=== PATIENT | male | born 1985 | race Caucasian/White ===

== ENCOUNTER 2022-06-23 13:51 | Emergency (ER) | payer OTHER, SELFPAY ==
[2022-06-23] VITALS (7 sets, daily range): BP systolic 106–141; BP diastolic 57–94; PULSE 78–106; RESP 16–18; TEMP 36.7; O2SAT 97–100
--- NOTE | 2022-06-23 14:35 | CTR_ITS ---
PROCEDURE INFORMATION: Exam: CT Abdomen And Pelvis With Contrast Exam date and time: 06/23/2022 3:08 PM Age: 37 years old Clinical indication: Abdominal pain; Localized; Left; Patient HX: Lt groin TECHNIQUE: Imaging protocol: Computed tomography of the abdomen and pelvis with contrast. Radiation optimization: All CT scans at this facility use at least one of these dose optimization techniques: automated exposure control; mA and/or kV adjustment per patient size (includes targeted exams where dose is matched to clinical indication); or iterative reconstruction. Contrast material: OMNI 350; Contrast volume: 100 ml; Contrast route: INTRAVENOUS (IV); Other protocol: This patient has received 0 known CTs and 0 known cardiac nuclear medicine studies in the 12 months prior to the current study. COMPARISON: No relevant prior studies available. RADIATION DOSE METRICS: Total DLP (mGy-cm): 931.16 FINDINGS: Liver: Normal. No mass. Gallbladder and bile ducts: Normal. No calcified stones. No ductal dilation. Pancreas: Normal. No ductal dilation. Spleen: Normal. No splenomegaly. Adrenal glands: Normal. No mass. Kidneys and ureters: Normal. No hydronephrosis. Stomach and bowel: Unremarkable. No obstruction. No mucosal thickening. Appendix: No evidence of appendicitis. Intraperitoneal space: Unremarkable. No free air. No significant fluid collection. Vasculature: Unremarkable. No abdominal aortic aneurysm. Lymph nodes: Asymmetric left inguinal adenopathy with some adjacent inflammatory fat stranding in the subcutaneous tissues. Mildly prominent left external iliac node also noted. Urinary bladder: Unremarkable as visualized. Reproductive: Unremarkable as visualized. Bones/joints: No acute fracture. Soft tissues: Please see lymph nodes section. CT/CT abdomen pelvis w con* [id number] IMPRESSION: Asymmetric left inguinal adenopathy with adjacent fat stranding in the subcutaneous tissues.
--- NOTE | 2022-06-23 14:36 | ED_ITS ---
HPI - Male Genitourinary General: Chief complaint: Urogenital-Male Stated complaint: abd pain Time Seen by Provider: 06/23/22 14:26 History of Present Illness: This patient is a 37 year old presenting with left groin pain. He reports that he first noticed some soreness on Friday when he leaned against his desk and the area was tender. Since then it has gotten worse and he went to urgent care today to get checked. He was sent here due to concern for an incarcerated hernia. He denies N/V/D. He has been eating normally and has been excessively thirsty. He has had normal BM and no urinary symptoms. He had one day where the pain seemed to radiate to his testicles, but not now. He denies any swelling or tenderness in the testicles. No discharge. He denies any medical history but says that he has had some heart event in the past that might have been a panic attack. He does not take any prescription medicine. Physical Exam Const: COMMON NORMALS: no acute distress, patient oriented x3, no limitations and alert GENERAL APPEARANCE: cooperative and comfortable HENMT: HEAD & SCALP: normal to inspection FACE & SINUS: normal facial exam Eye: GENERAL EYE: appearance normal, both eyes and all related structures Neck/C-Spine: COMMON NORMALS: supple, no meningeal signs and no JVD Chest: COMMONS NORMALS: normal inspection of the chest Resp: COMMON NORMALS: normal respiratory effort, No use of accessory muscles and clear to auscultation bilaterally AUSCULTATION: clear to auscultation bilaterally Cardio: COMMON NORMALS: no JVD, regular rate, regular rhythm and No murmurs present (Cardio) RATE: regular rate RHYTHM: regular rhythm GI: COMMON NORMALS: Normal to inspection, nondistended, normoactive bowel sounds present AUSCULTATION: Yes normoactive bowel sounds PALPATION: Yes Tenderness to palpation present (GI) (firm, tender mass in the left inguinal area - hernia vs lymphadenopathy) : COMMON NORMALS: Yes Testes normal, Yes scrotum normal and Yes no scrotal swelling Back/Pelvis: COMMON NORMALS: thoracic and lumbar spine normal to inspection Extremity: COMMON NORMALS: normal to inspection Neuro: COMMON NORMALS: patient oriented x3, moves all extremities, no focal motor deficits and no sensory deficits noted SENSORIUM/ORIENTATION: Yes alert MENINGEAL SIGNS: Yes no meningeal signs Psych: COMMON NORMALS: mental status grossly normal, cooperative and normal affect Skin: COMMON NORMALS: no rashes or lesions noted and turgor normal GENERAL SKIN EXAM: no rashes or lesions noted and turgor normal Course Vital Signs: Vital signs: Vital Signs Temperature 98.0 F 06/23/22 13:55 Pulse Rate 97 06/23/22 15:02 Respiratory Rate 18 06/23/22 15:02 Blood Pressure 124/92 06/23/22 15:02 Pulse Oximetry 98 06/23/22 15:02 Oxygen Delivery Me thod 06/23/22 13:55 MDM - Male Medical Decision Making LLQ/left inguinal mass. Too tender to really allow a hernia exam. Location concerning for hernia - tenderness would suggest incarceration - however no N/V and still having BM, still eating. Potentially could omentum incarceration rather than bowel. Also consider lymphadenopathy. Labs, CT pending. UA pen meghna. Patient denies any concern for STI. I did add an RPR which has been recommended by infectious disease specialist in our area due to a resurgence of the disease and it is in the differential for inguinal lymphadenopathy. Patient aware. CT with no hernia. Fat stranding and enlarged lymph nodes in the area of tenderness. No other lymphadenopathy elsewhere on CT or on exam. Labs are unr emarkable. Patient understands need for follow up - prescribed antibiotics and recommended follow up in about 2 week. Recommended that he establish care with a PCP. He also was given a script for pain meds and we discussed OTC pain control as well. Lab Data 06/23/22 15:09 06/23/22 15:09 Radiology Impressions Abdomen/Pelvis CT 06/23/22 14:35 IMPRESSION: Asymmetric left inguinal adenopathy with adjacent fat stranding in the subcutaneous tissues. Laboratory Results WBC 8.4 10^3/uL (4.0-10.0) 06/23/22 15:09 RBC 5.64 10^6/uL (4.1-5.3) H 06/23/22 15:09 Hgb 16.3 g/dL (11.7-16.6) 06/23/22 15:09 Hct 48.8 % (42.0-52.0) 06/23/22 15:09 MCV 86.5 fl (80-94) 06/23/22 15:09 MCH 28.9 pg (28.0-34.0) 06/23/22 15:09 MCHC 33.4 g/dL (30.0-36.0) 06/23/22 15:09 RDW 12.4 % (12.1-15.1) 06/23/22 15:09 Plt Count 282 10^3/cmm (130-400) 06/23/22 15:09 MPV 9.2 fL (7.4-10.4) 06/23/22 15:09 Neut % (Auto) 62.3 % 06/23/22 15:09 Lymph % (Auto) 22.2 % 06/23/22 15:09 [place]ides % (Auto) 10.2 % 06/23/22 15:09 Eos % (Auto) 3.8 % 06/23/22 15:09 Baso % (Auto) 0.8 % 06/23/22 15:09 Neut # (Auto) 5.20 10^3/uL (1.8-7.7) 06/23/22 15:09 Lymph # (Auto) 1.9 10^3/uL (0.8-4.8) 06/23/22 15:09 Rapides # (Auto) 0.9 10^3/uL (0.2-0.9) 06/23/22 15:09 Eos # (Auto) 0.3 10^3/uL (0.0-0.8) 06/23/22 15:09 Baso # (Auto) 0.1 10^3/uL (0.0-0.1) 06/23/22 15:09 Nucleated RBC % (auto) 0 % 06/23/22 15:09 Nucleated RBCs # 0.0 /100WBC 06/23/22 15:09 Sodium 139 mmol/L (136-145) 06/23/22 15:09 Potassium 4.1 mmol/L (3.5-5.1) 06/23/22 15:09 Chloride 100 mmol/L (98-107) 06/23/22 15:09 Carbon Dioxide 27 mmol/L (22-29) 06/23/22 15:09 Anion Gap 16.1 (5-19) 06/23/22 15:09 BUN 13 mg/dL (6-20) 06/23/22 15:09 Creatinine 1.0 mg/dL (0.7-1.2) 06/23/22 15:09 GFR Calculation 84.5 mL/min (90-130) L 06/23/22 15:09 Glucose 82 mg/dL (65-115) 06/23/22 15:09 Calculated Osmolality 287 mOsm/kg (285-295) 06/23/22 15:09 Lactic Acid 1.4 mmol/L (0.5-2.2) 06/23/22 15:07 Calcium 9.5 mg/dL (8.5-10.5) 06/23/22 15:09 Total Bilirubin 0.5 mg/dL (0.15-1.2) 06/23/22 15:09 AST 36 U/L (0-40) 06/23/22 15:09 ALT 52 U/L (0-41) H 06/23/22 15:09 Alkaline Phosphatase 75 U/L (40-130) 06/23/22 15:09 Total Protein 7.9 g/dL (6.6-8.7) 06/23/22 15:09 Albumin 4.9 g/dL (3.5-5.2) 06/23/22 15:09 Globulin 3.3 g/dL (1.3-4.6) 06/23/22 15:09 Lipase 38 U/L (13-60) 06/23/22 15:09 Urine Color Yellow (Yellow) 06/23/22 15:27 Urine Appearance Clear (CLEAR) 06/23/22 15:27 Urine pH 7 (5-7) 06/23/22 15:27 Ur Specific Rattan 1.005 (1.005-1.030) 06/23/22 15:27 Urine Protein Neg (Negative) 06/23/22 15:27 Urine Glucose (UA) Norm (Normal) 06/23/22 15:27 Urine Ketones 1+ (Negative) H 06/23/22 15:27 Urine Blood Neg (Negative) 06/23/22 15:27 Urine Nitrate Negative (Negative) 06/23/22 15:27 Urine Bilirubin Neg (Negative) 06/23/22 15:27 Urine Urobilinogen Norm mg/dL (Negative) 06/23/22 15:27 Ur Leukocyte Esterase Negative (Negative) 06/23/22 15:27 Discharge Plan Discharge Patient Disposition: Home Clinical Impression: Inguinal lymphadenopathy Condition: Stable Prescriptions: New oxycodone 5 mg tablet 5 mg PO Q6H PRN (Reason: pain) Qty: 20 0RF doxycycline hyclate 100 mg capsule 100 mg PO BID 21 Days Qty: 42 0RF Discharge Orders: Discharge ED (Routine); Ordered 06/23/22 Ordered By: Charlotte Soto Discharge Diet: Advance as tolerated Discharge Activity: Resume usual activity Patient Instructions: Opioid Safety, Pain Management Activity Restrictions/Additional Instructions: Return to the ED if new or worse symptoms. Take the pain medicine as needed for severe pain. You may take ibuprofen up to 600 mg every 6 hours, and acetaminophen up to 1000 mg every 6 hours, instead of OR with the pain medicine. Take the antibiotics as prescribed. (with food or it will make you nauseous). Establish care with a primary care provider and follow up in about 2 weeks to make sure that the lymph node infection is improving. Coding Level of Care Code ED [employer] for Bi Fwd Exam Comprehensive
[2022-06-23] MEDS: morphine 4 mg/mL SDV 1 mL IVP (14:49)
[2022-06-23] MEDS: ondansetron 2 mg/ML SDV 2 mL 4 MG IVP (14:49)
[2022-06-23] MEDS: sodium chloride 0.9% 1,000 ML 999 ML IV (14:51)
[2022-06-23] MEDS: iohexol 350 mg/mL 500 mL Btl (per mL) IV (15:07)
[2022-06-23 15:29] LABS: Basophils # 0.1 10^3/uL (0.0-0.1); Basophils % 0.8 %; Eosinophils # 0.3 10^3/uL (0.0-0.8); Eosinophils % 3.8 %; Hematocrit 48.8 % (42.0-52.0); Hemoglobin 16.3 g/dL (11.7-16.6); Lymphocytes # 1.9 10^3/uL (0.8-4.8); Lymphocytes % 22.2 %; Mean Corpuscular HGB Conc 33.4 g/dL (30.0-36.0); Mean Corpuscular Hemoglobin 28.9 pg (28.0-34.0); Mean Corpuscular Volume 86.5 fl (80-94); Mean Platelet Volume 9.2 fL (7.4-10.4); Monocytes # 0.9 10^3/uL (0.2-0.9); Monocytes % 10.2 %; Neutrophils % 62.3 %; Nucleated Red Blood Cells % 0 %; Platelet Count 282 10^3/cmm (130-400); Red Blood Count 5.64 10^6/uL (4.1-5.3); Red Cell Distribution Width 12.4 % (12.1-15.1); White Blood Count 8.4 10^3/uL (4.0-10.0)
[2022-06-23 15:38] LABS: Add Urine Microscopic? NO; Charge for UA Resulting for Rev
[2022-06-23 15:46] LABS: Albumin Level 4.9 g/dL (3.5-5.2); Alkaline Phosphatase 75 U/L (40-130); Potassium 4.1 mmol/L (3.5-5.1)
[2022-06-23 15:49] LABS: Alanine Aminotransferase 52 U/L (0-41); Anion Gap 16.1 (5-19); Aspartate Amino Transferase 36 U/L (0-40); Blood Urea Nitrogen 13 mg/dL (6-20); Calcium 9.5 mg/dL (8.5-10.5); Carbon Dioxide 27 mmol/L (22-29); Chloride 100 mmol/L (98-107); Globulin 3.3 g/dL (1.3-4.6); Glomerular Filtration Rate 84.5 mL/min (90-130); Glucose 82 mg/dL (65-115); Lipase 38 U/L (13-60); Osmolality Calculated 287 mOsm/kg (285-295); Sodium 139 mmol/L (136-145); Total Bilirubin 0.5 mg/dL (0.15-1.2); Total Protein 7.9 g/dL (6.6-8.7)
[2022-06-23 15:53] LABS: Lactic Sepsis W/Reflex 1.4 mmol/L (0.5-2.2)
[2022-06-23 16:10] LABS: Bilirubin Urine Neg (Negative); Blood Urine Neg (Negative); Glucose Urine UA Norm (Normal); Ketones Urine 1+ (Negative); Leukocyte Esterase Urine Negative (Negative); Nitrate Urine Negative (Negative); Protein Urine Neg (Negative); Specific Gravity, Urine 1.005 (1.005-1.030); Urine Appearance Clear (CLEAR); Urine Color Yellow (Yellow); Urobilinogen Urine Norm (Negative); pH Urine 7 (5-7)
[2022-06-23] MEDS: ketorolac 30 mg/mL INJ 15 MG IVP (16:44)
[2022-06-25 13:35] LABS: RPR w(Moniotor) w/REFL Titer NON-REACTIVE (NON-REACTIVE)
== END 2022-06-23 16:52 | disposition home or self-care (01) ==
PROVIDERS: Emergency Medicine; Emergency Provider Emergency Medicine
DX: R59.0 Localized enlarged lymph nodes (principal)
CPT/HCPCS: 36415; 74177; 80053; 81003; 83605; 83690; 85025; 86592; 96361; 96374; 96375; 99285; J1885; J2270; J2405; J7030; Q9967

== ENCOUNTER → 2022-08-06 12:49 | Outpatient (BNVA) | payer OTHER, SELFPAY | PROVIDERS: PCP Family Medicine; Visit Provider Family Medicine | DX: R59.0 Localized enlarged lymph nodes (principal); G47.53 Recurrent isolated sleep paralysis; F41.0 Panic disorder [episodic paroxysmal anxiety]; F41.1 Generalized anxiety disorder; Z00.00 Encounter for general adult medical examination without abnormal findings; Z13.6 Encounter for screening for cardiovascular disorders | CPT/HCPCS: 80061; 83721 ==

== ENCOUNTER → 2022-11-05 13:10 | Outpatient (BNVA) | payer OTHER, SELFPAY | PROVIDERS: PCP Family Medicine; Visit Provider Family Medicine | DX: E78.5 Hyperlipidemia, unspecified (principal) | CPT/HCPCS: 80053; 80061 ==

== ENCOUNTER → 2023-11-20 14:09 | Outpatient (BNVA) | payer OTHER, SELFPAY | PROVIDERS: PCP Family Medicine; Visit Provider Family Medicine | DX: Z00.00 Encounter for general adult medical examination without abnormal findings (principal); E78.5 Hyperlipidemia, unspecified | CPT/HCPCS: 80053; 80061; 84443; 85025 ==

== ENCOUNTER → 2024-03-26 09:10 | Outpatient (BNVA) | payer OTHER, SELFPAY | PROVIDERS: PCP Family Medicine; Visit Provider Family Medicine | DX: D64.9 Anemia, unspecified (principal); G25.81 Restless legs syndrome | CPT/HCPCS: 82728 ==

== ENCOUNTER → 2024-08-13 09:10 | Outpatient (BNVA) | payer OTHER, SELFPAY | PROVIDERS: PCP Family Medicine; Visit Provider Family Medicine | DX: E78.5 Hyperlipidemia, unspecified (principal) | CPT/HCPCS: 80053; 80061; 84443 ==

== ENCOUNTER → 2024-11-11 17:06 | Outpatient (BNVA) | payer OTHER, SELFPAY | PROVIDERS: PCP Family Medicine; Visit Provider Family Medicine | DX: M79.674 Pain in right toe(s) (principal) | CPT/HCPCS: 73630 ==